=== PATIENT | female | born 1985 ===

== ENCOUNTER 2017-04-17 21:49 | Emergency (ER) | payer SELFPAY ==
[~2017-04-17] VITALS: Ht 154.9 cm; Wt 51.5 kg
[2017-04-17 21:56] VITALS: Ht 154.9 cm; Wt 51.5 kg
== END 2017-04-18 01:57 | disposition left against medical advice (07) ==
LOC: E/R 21:49
DX: Z53.21 Procedure and treatment not carried out due to patient leaving prior to being seen by health care provider (principal)